=== PATIENT | female | born 1955 | race African-American/Black ===

== ENCOUNTER 2016-11-18 18:16 | Emergency (ER) | payer BC, OTHER ==
[2016-11-18 18:28] VITALS: TEMP 97.5; BMI 24.3
[2016-11-18 19:59] VITALS: BP 150/91; PULSE 71
[2016-11-18 20:32] LABS: BASOPHIL 0.6 % (0-2.0); EOSINOPHIL 0.7 % (0-4.5); MCH 28.6 pg (25.7-33.7); MCHC 34.3 g/dl (32.0-36.0); MEAN CELL VOLUME 83.4 fl (80-96); NEUTROPHILS 48.1 % (42.8-82.8); PLATELET COUNT 280 K/MM3 (134-434); RDW 14.7 % (11.6-15.6); WHITE BLOOD COUNT 3.9 K/mm3 (4.0-10.0)
[2016-11-18 21:09] LABS: ALBUMIN 3.9 g/dl (3.4-5.0); ANION GAP 10 (8-16); CALCIUM 8.9 mg/dL (8.5-10.1); CO2 29 mmol/L (21-32); GLUCOSE,RANDOM 84 mg/dL (74-106)
[2016-11-18 21:14] LABS: ALK PHOS 67 U/L (45-117); BILIRUBIN,TOTAL 0.3 mg/dL (0.2-1.0); CREATININE 0.8 mg/dL (0.55-1.02); SGOT/AST 29 U/L (15-37); SGPT/ALT 32 U/L (12-78); TOT PROT 7.4 g/dl (6.4-8.2)
[2016-11-18] MEDS ORDERED: POTASSIUM CHLORIDE TABS 20 MEQ TABLET.ER (FP) PO ONE ×2 (21:35→21:48)
--- NOTE | 2016-11-18 21:42 | PDOC ---
History of Present Illness - General Chief Complaint: Weakness Stated Complaint: WEAKNESS Time Seen by Provider: 11/18/16 19:13 - History of Present Illness Initial Comments: 11/18/16 21:36 CHIEF COMPLAINT: weakness HISTORY OF PRESENT ILLNESS: 61 yo F with hx of HTN presents to ED with intermittent weakness x 2 weeks. Patient states today she felt a "sharp pain" to the top of her stomach that immediately went away. She states she has noticed that sometimes when she eats in the morning she is dizzy, but the dizziness resolves in the afternoon and evenings. She was seen at [facility] 2 weeks ago for the same symptoms. She also reports that she feels sometimes that she "is not balancing when walking." She denies any shortness of breath, chest pain, LOC, nausea, vomiting, diarrhea, or change in urination. 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 No recent travel or sick contacts. 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 Denies tobacco, alcohol, illicit drug use. SURGICAL HISTORY: Denies ALLERGIES: No known drug allergies REVIEW OF SYSTEMS General/Constitutional: Denies fever or chills. Denies weakness, weight change. HEENT: Denies change in vision. Denies ear pain or discharge. Denies sore throat. Cardiovascular: Denies chest pain or shortness of breath. Respiratory: Denies cough, wheezing, or hemoptysis. Gastrointestinal: Denies nausea, vomiting, diarrhea or constipation. Denies rectal bleeding. Genitourinary: Denies dysuria, frequency, or change in urination. Musculoskeletal: Denies joint or muscle swelling or pain. Denies neck or back pain. Skin and breasts: Denies rash or easy bruising. Neurologic: Intermittent dizziness, none at this time. Denies headache, loss of consciousness, or loss of sensation. PHYSICAL EXAM General Appearance: Well-appearing, appropriately dressed. No apparent distress , no intoxication. HEENT: EOMI, PERRLA, normal ENT inspection, normal voice, TMs normal, pharynx normal. No conjunctival pallor. No photophobia, scleral icterus. Neck: Supple. Trachea midline. No tenderness, rigidity, carotid bruit, stridor , lymphadenopathy, or thyromegaly. Respiratory/Chest: Lungs CTAB. No shortness of breath, chest tenderness, respiratory distress, accessory muscle use. No crackles, rales, rhonchi, stridor , wheezing, dullness Cardiovascular: RRR. S1, S2. No JVD, murmur, bradycardia, tachycardia. Vascular Pulses: Dorsalis-Pedis (R): 2+, Dorsalis-Pedis (L): 2+ Gastrointestinal/Abdominal: Normal bowel sounds. Abdomen soft, non-distended. No tenderness or rebound tenderness. No organomegaly, pulsatile mass, guarding , hernia, hepatomegaly, splenomegaly. Lymphatic: No adenopathy, tenderness. Musculoskeletal/Extremities: Normal inspection. FROM of all extremities, normal capillary refill. Pelvis Stable. No CVA tenderness. No tenderness to extremities, pedal edema, swelling, erythema or deformity. Integumentary: Appropriate color, dry, warm. No cyanosis, erythema, jaundice or rash Neurologic: chinese medicine practitioner II-XII intact. Fully oriented, alert. Appropriate mood/affect. Motor strength 5/5. No appreciable EOM palsy, facial droop or sensory deficit. Past History - Past Medical History Allergies/Adverse Reactions: Allergies Allergy/AdvReac Type Severity Reaction Status Date / Time No Known Allergies Allergy Verified 11/18/16 18:28 Home Medications: Ambulatory Orders Unobtainable [Unobtainable] 11/18/16 HTN: Yes - Psycho/Social/Smoking Cessation Hx Suicidal Ideation: No Smoking History: Never smoked *Physical Exam - Vital Signs Last Vital Signs Temp Pulse Resp BP Pulse Ox 97.5 F L 71 19 150/91 100 11/18/16 18:26 11/18/16 19:58 11/18/16 19:58 11/18/16 19:58 11/18/16 19:58 ED Treatment Course - LABORATORY CBC & Chemistry Diagram: 11/18/16 19:10 11/18/16 19:10 - ADDITIONAL ORDERS Additional order review: Laboratory Results 11/18/16 19:10 Sodium 143 Potassium 3.3 L Chloride 104 Carbon Dioxide 29 Anion Gap 10 BUN 17 Creatinine 0.8 Creat Clearance w eGFR > 60 Random Glucose 84 Calcium 8.9 Magnesium 2.0 Total Bilirubin 0.3 AST 29 ALT 32 Alkaline Phosphatase 67 Total Protein 7.4 Albumin 3.9 11/18/16 19:10 RBC 4.33 MCV 83.4 MCHC 34.3 RDW 14.7 MPV 8.0 Neutrophils % 48.1 Lymphocytes % 43.7 H Monocytes % 6.9 Eosinophils % 0.7 Basophils % 0.6 - RADIOLOGY Radiology Studies Ordered: Category Date Time Status HEAD CT WITHOUT CONTRAST [CT] Stat CT Scan 11/18/16 20:16 Completed CHEST PA & LAT [RAD] Stat Radiology 11/18/16 20:09 Completed Medical Decision Making - Medical Decision Making 11/18/16 21:42 61 yo F with hx of HTN presents to ED with intermittent weakness and dizziness x 2 weeks. -CBC, CMP -Head CT labs: K+ 3.3, otherwise unremarkable head CT negative -20 mEq KCl Patient reassessed; states she still feels "fine." Will discharge to home with close f/u with PMD Steven Owusu. Advised patient to f/u with Dr. Owusu this week and of signs and symptoms for return to ER. Patient verbalized understanding and agrees to plan; states she will make appt with MD tomorrow. *DC/Admit/Observation/Transfer Diagnosis at time of Disposition: Weakness - Discharge Dispostion Disposition: HOME Condition at time of disposition: Stable Admit: No - Referrals Referrals: Steven Owusu MD [Primary Care Provider] - Constantin Castro MD [Staff Physician] - - Patient Instructions Additional Instructions: As discussed, please follow up with Dr. Owusu tomorrow. If you experience any vomiting, diarrhea, rectal bleeding, change in urination, fever, headache, chest pain, shortness of breath, weakness to one side, slurred speech, change in vision, or any new or worsening symptoms, please return to the ER. - Post Discharge Activity Work/School Note: Back to Work
--- NOTE | 2016-11-18 21:48 | PDOC ---
[id number]/91 100 11/18/16 18:26 11/18/16 19:58 11/18/16 19:58 11/18/16 19:58 11/18/16 19:58 ED Treatment Course - LABORATORY CBC & Chemistry Diagram: 11/18/16 19:10 11/18/16 19:10 - ADDITIONAL ORDERS Additional order review: Laboratory Results 11/18/16 19:10 Sodium 143 Potassium 3.3 L Chloride 104 Carbon Dioxide 29 Anion Gap 10 BUN 17 Creatinine 0.8 Creat Clearance w eGFR > 60 Random Glucose 84 Calcium 8.9 Magnesium 2.0 Total Bilirubin 0.3 AST 29 ALT 32 Alkaline Phosphatase 67 Total Protein 7.4 Albumin 3.9 11/18/16 19:10 RBC 4.33 MCV 83.4 MCHC 34.3 RDW 14.7 MPV 8.0 Neutrophils % 48.1 Lymphocytes % 43.7 H Monocytes % 6.9 Eosinophils % 0.7 Basophils % 0.6 Medical Decision Making - Medical Decision Making 11/18/16 21:48 agree with care from [facility] *DC/Admit/Observation/Transfer Diagnosis at time of Disposition: Weakness - Discharge Dispostion Disposition: HOME Condition at time of disposition: Stable - Referrals Referrals: Constantin Castro MD [Staff Physician] - Steven Owusu MD [Primary Care Provider] - - Patient Instructions Additional Instructions: As discussed, please follow up with Dr. Owusu tomorrow. If you experience any vomiting, diarrhea, rectal bleeding, change in urination, fever, headache, chest pain, shortness of breath, weakness to one side, slurred speech, change in vision, or any new or worsening symptoms, please return to the ER. - Post Discharge Activity Work/School Note: Back to Work
--- NOTE | 2016-11-19 16:38 | EKG ---
Test Reason : Blood Pressure : / mmHG Vent. Rate : 069 BPM Atrial Rate : 069 BPM P-R Int : 152 ms QRS Dur : 058 ms QT Int : 400 ms P-R-T Axes : 050 019 034 degrees QTc Int : 428 ms NORMAL SINUS RHYTHM NORMAL ECG WHEN COMPARED WITH ECG OF 13-NOV-2009 23:31, NO SIGNIFICANT CHANGE WAS FOUND Confirmed by MD RAVIN, ISAI ([id number]) on 11/19/2016 4:37:54 PM Referred By: Confirmed By:ISAI ALICIA MD
== END 2016-11-18 22:20 | disposition home or self-care (01) ==
LOC: JER 18:16
DX: R53.1 Weakness (principal); I10 Essential (primary) hypertension; E87.6 Hypokalemia
CPT/HCPCS: 36415; 70450-TC; 71020-TC; 80053; 83735; 85025; 93005; 93010; 99283-25

== ENCOUNTER 2017-05-09 15:51 | Emergency (ER) | payer OTHER ==
[2017-05-09 15:57] VITALS: BP 135/70; PULSE 88; TEMP 97.8; BMI 24.3
--- NOTE | 2017-05-09 16:12 | PDOC ---
History of Present Illness - General History Source: Patient Exam Limitations: No Limitations - History of Present Illness Initial Comments: The patient is a 62 yo F with a past medical history significant for HTN (on Glymersartan 40/25 and hydrochlorothiazide) who presents with sharp, intermittent chest pain and dizziness for 2 days. The patient states the chest pain is centrally located and worsened when she bends her head downward. 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 The patient reports she was seen here a few months ago with similar symptoms and diagnosed with GERD. She states she followed up with her PCP but did not continue to take her GERD medications. The patient denies passing gas. The patient denies sick contacts. The patient denies palpitations. The patient denies nausea, vomiting, diarrhea and abdominal pain. PCP: Dr. Steven Owusu <Estefanía Rodriguez - Last Filed: 05/09/17 19:10> <Yariel Fraire - Last Filed: 05/09/17 20:14> - General Chief Complaint: Chest Pain Stated Complaint: STERNUM PAIN, DIZZINESS Time Seen by Provider: 05/09/17 16:12 Past History <Estefanía Rodriguez - Last Filed: 05/09/17 19:10> - Past Medical History HTN: Yes - Psycho/Social/Smoking Cessation Hx Suicidal Ideation: No Smoking History: Never smoked Hx Alcohol Use: No Drug/Substance Use Hx: No <Yariel Fraire - Last Filed: 05/09/17 20:14> - Past Medical History Allergies/Adverse Reactions: Allergies Allergy/AdvReac Type Severity Reaction Status Date / Time No Known Allergies Allergy Verified 05/09/17 15:58 Home Medications: Ambulatory Orders Aspirin [Ecotrin] 81 mg PO DAILY 05/09/17 Multivitamin/Iron/Folic Acid [Centrum Adults Tablet] 1 each PO DAILY 05/09/17 Olmesartan/Hydrochlorothiazide [Olmesartan-Hctz 40-25 mg Tab] 1 each PO DAILY Mcgrath-3 Fatty Acids/Fish Oil [Fish Oil 1,000 mg Softgel] 1 each PO DAILY Pantoprazole Sodium [Protonix] 40 mg PO BID #60 tablet. 05/09/17 Review of Systems - Review of Systems Able to Perform ROS?: Yes Comments:: GENERAL/CONSTITUTIONAL: No fever or chills. No weakness. HEAD, EYES, EARS, NOSE AND THROAT: No change in vision. No ear pain or discharge. No sore throat. CARDIOVASCULAR: +chest pain shortness of breath. RESPIRATORY: No cough, wheezing, or hemoptysis. GASTROINTESTINAL: No nausea, vomiting, diarrhea or constipation. GENITOURINARY: No dysuria, frequency, or change in urination. MUSCULOSKELETAL: No joint or muscle swelling or pain. No neck or back pain. SKIN: No rash NEUROLOGIC: +dizziness No headache, vertigo, loss of consciousness, or change in strength/sensation. ALLERGIC/IMMUNOLOGIC: No hives or skin allergy. <Estefanía Rodriguez - Last Filed: 05/09/17 19:10> *Physical Exam - Vital Signs Last Vital Signs Temp Pulse Resp BP Pulse Ox 97.8 F 88 18 135/70 100 05/09/17 15:51 05/09/17 15:51 05/09/17 15:51 05/09/17 15:51 05/09/17 15:51 - Physical Exam Comments: GENERAL: Awake, alert, and fully oriented, in no acute distress HEAD: No signs of trauma EYES: PERRLA, EOMI, sclera anicteric, conjunctiva clear ENT: Auricles normal inspection, hearing grossly normal, nares patent, oropharynx clear without exudates. Moist mucosa NECK: Normal ROM, supple, no lymphadenopathy, JVD, or masses LUNGS: Breath sounds equal, clear to auscultation bilaterally. No wheezes, and no crackles HEART: Regular rate and rhythm, normal S1 and S2, no rubs or gallops. 4/6 systolic ejection murmur heard best in the R intercostal space. ABDOMEN: Soft, nontender, normoactive bowel sounds. No guarding, no rebound. No masses EXTREMITIES: Normal range of motion, no edema. No clubbing or cyanosis. No cords, erythema, or tenderness NEUROLOGICAL: Cranial nerves II through XII grossly intact. Normal speech, gait not assessed SKIN: Warm, Dry, normal turgor, no rashes or lesions noted. <Estefanía Rodriguez - Last Filed: 05/09/17 19:10> - Vital Signs Last Vital Signs Temp Pulse Resp BP Pulse Ox 97.8 F 88 18 135/70 100 05/09/17 15:51 05/09/17 15:51 05/09/17 15:51 05/09/17 15:51 05/09/17 15:51 <Yariel Fraire - Last Filed: 05/09/17 20:14> Heart Score/ECG Review #1 NSR @ 82 bpm. <Estefanía Rodriguez - Last Filed: 05/09/17 19:10> ED Treatment Course - LABORATORY CBC & Chemistry Diagram: 05/09/17 16:36 05/09/17 16:36 <Estefanía Rodriguez - Last Filed: 05/09/17 19:10> - LABORATORY CBC & Chemistry Diagram: 05/09/17 16:36 05/09/17 16:36 <Yariel Fraire - Last Filed: 05/09/17 20:14> Medical Decision Making - Medical Decision Making Will place on satellite project site monitor. Will obtain labs. Will reasses. <Estefanía Rodriguez - Last Filed: 05/09/17 19:10> *DC/Admit/Observation/Transfer - Attestations Scribe Attestion: Documentation prepared by Estefanía Rodriguez, acting as medical instrument technician for Yariel Fraire MD/DO. <Estefanía Rodriguez - Last Filed: 05/09/17 19:10> - Discharge Dispostion Admit: No - Attestations Physician Attestion: 05/09/17 16:12 I, Dr. Yariel Fraire, attest that this document has been prepared under my direction and personally reviewed by me in its entirety. I further attest, that it accurately reflects all work, treatment, procedures and medical decision -making performed by me. <Yariel Fraire - Last Filed: 05/09/17 20:14> Diagnosis at time of Disposition: Chest pain, atypical GERD (gastroesophageal reflux disease) Qualifiers: Esophagitis presence: without esophagitis Qualified Code(s): K21.9 - Gastro- esophageal reflux disease without esophagitis - Discharge Dispostion Disposition: HOME Condition at time of disposition: Good - Referrals Referrals: Steven Owusu MD [Primary Care Provider] - - Patient Instructions Printed Discharge Instructions: DI for Atypical Chest Pain, DI for Chest Pain, DI for Gastroesophageal Reflux Disease (GERD), GERD Diet Additional Instructions: Please start the protonix tomorrow, take your regular medicines, see Dr. Owusu (Steven) before returning to work. Return to us if any problems. Best- Dr. Yariel Fraire - Post Discharge Activity Work/School Note: Back to Work
[2017-05-09 18:01] LABS: BASOPHIL 0.4 % (0-2.0); EOSINOPHIL 0.2 % (0-4.5); MCHC 34.6 g/dl (32.0-36.0); MEAN CELL VOLUME 83.9 fl (80-96); MEAN PLT VOLUME 7.5 fl (7.5-11.1); NEUTROPHILS 58.7 % (42.8-82.8); PLATELET COUNT 288 K/MM3 (134-434); RDW 14.6 % (11.6-15.6); WHITE BLOOD COUNT 4.1 K/mm3 (4.0-10.0)
[2017-05-09 18:14] LABS: INR 1.1 (0.82-1.09); PROTHROMBIN TIME (PATIENT) 12.1 SEC (9.98-11.88)
[2017-05-09 18:24] LABS: ALBUMIN 3.8 g/dl (3.4-5.0); ALK PHOS 63 U/L (45-117); ANION GAP 7 (8-16); BILIRUBIN,TOTAL 0.3 mg/dL (0.2-1.0); CALCIUM 9.1 mg/dL (8.5-10.1); CO2 31 mmol/L (21-32); CREATININE 0.8 mg/dL (0.55-1.02); GLUCOSE,RANDOM 106 mg/dL (74-106); SGOT/AST 32 U/L (15-37); SGPT/ALT 45 U/L (12-78); TOT PROT 7.3 g/dl (6.4-8.2)
[2017-05-09 18:26] LABS: CPK 465 IU/L (26-192); TROPONIN I < 0.02 ng/ml (0.00-0.05)
[2017-05-09 18:39] LABS: URINE APPEARANCE CLEAR; URINE BILIRUBIN NEGATIVE (NEGATIVE); URINE BLOOD NEGATIVE (NEGATIVE); URINE COLOR LTYELLOW; URINE GLUCOSE (UA) NEGATIVE (NEGATIVE); URINE KETONE NEGATIVE (NEGATIVE); URINE LEUK ESTERASE NEGATIVE (NEGATIVE); URINE NITRITE NEGATIVE (NEGATIVE); URINE PROTEIN NEGATIVE (NEGATIVE); URINE UROBILINOGEN NEGATIVE mg/dL (0.2-1.0)
--- NOTE | 2017-05-11 16:47 | EKG ---
Test Reason : Blood Pressure : / mmHG Vent. Rate : 082 BPM Atrial Rate : 082 BPM P-R Int : 198 ms QRS Dur : 060 ms QT Int : 356 ms P-R-T Axes : 077 065 061 degrees QTc Int : 415 ms NORMAL SINUS RHYTHM NORMAL ECG WHEN COMPARED WITH ECG OF 18-NOV-2016 19:22, NO SIGNIFICANT CHANGE WAS FOUND Confirmed by ESDRAS DE LEON MD ([id number]) on 05/11/2017 4:46:43 PM Referred By: Confirmed By:ESDRAS DE LEON MD
== END 2017-05-09 20:25 | disposition home or self-care (01) ==
LOC: JER 15:51
DX: K21.9 Gastro-esophageal reflux disease without esophagitis (principal); I10 Essential (primary) hypertension
CPT/HCPCS: 36415; 71010-TC; 80053; 81003; 82553; 84484; 85025; 85610; 93005; 93010; 99285-25

== ENCOUNTER 2017-06-01 07:40 | Day surgery (SDC) | payer OTHER ==
[2017-05-31 12:22] VITALS: BMI 23.5
[~2017-06-01 07:40] MED LIST: ACETAMINOPHEN 325 MG TABLET (FP) PO PRN; CHONDROITIN SU A/HYALUR SOD 1 KIT IO ONE; FLURBIPROFEN 0.03% OPHTH SOLN 2.5 ML BOTTLE OP SCH; LIDOCAINE HCL 1% PRESERVATIVE FREE - 30ML VIAL IO ONE; LIDOCAINE HCL 2% JELLY (5 ML/TUBE) TP ONE
[2017-06-01 08:00] VITALS: TEMP 97.6
[2017-06-01] MEDS ORDERED: LIDOCAINE HCL 2% JELLY (5 ML/TUBE) TP ONE ×2 (08:00→08:40)
[2017-06-01] MEDS: CIPROFLOXACIN HCL 0.3% OPHTH 2.5ML BOTTLE OP SCH ×3 (08:00→08:42)
[2017-06-01] MEDS: CYCLOPENTOLATE HCL 1% OPHTH SOLN 2 ML BOTTLE OP SCH ×3 (08:05→08:42)
[2017-06-01] MEDS: TROPICAMIDE 1% OPHTH SOLN 15 ML BOTTLE OP SCH ×3 (08:05→08:43)
[2017-06-01] MEDS: PHENYLEPHRINE 2.5% OPHTH SOLN 15 ML BOTTLE OP SCH ×3 (08:05→08:43)
[2017-06-01] MEDS ORDERED: CIPROFLOXACIN 0.3% EYE DROPS 5 ML BOTTLE ONE (08:11)
[2017-06-01] MEDS ORDERED: CYCLOPENTOLATE HCL 1% OPHTH SOLN 2 ML BOTTLE ONE (08:11)
[2017-06-01] MEDS ORDERED: PHENYLEPHRINE 2.5% OPHTH SOLN 15 ML BOTTLE ONE (08:11)
[2017-06-01] MEDS ORDERED: TROPICAMIDE 1% OPHTH SOLN 15 ML BOTTLE ONE (08:11)
[2017-06-01] MEDS ORDERED: LIDOCAINE HCL 1% PRESERVATIVE FREE - 30ML VIAL IO ONE ×2 (08:18→09:07)
[2017-06-01] MEDS ORDERED: CHONDROITIN SU A/HYALUR SOD 1 KIT IO ONE ×2 (08:19→09:08)
[2017-06-01] MEDS ORDERED: MIDAZOLAM HCL 2 MG/2 ML SINGLE DOSE VIAL ONE (08:54)
--- NOTE | 2017-06-01 09:44 | SPEC ---
DATE OF OPERATION: 06/01/2017 PREOPERATIVE DIAGNOSIS: Cataract, left eye. POSTOPERATIVE DIAGNOSIS: Cataract, left eye. PROCEDURE: Phacoemulsification of left cataract with posterior chamber intraocular lens implantation. Lens used [id number], 21.0 diopter power, serial no. [id number]. SURGEON: Delia Jones M.D. ANESTHESIA: Topical MAC. COMPLICATIONS: None. DESCRIPTION OF PROCEDURE: The patient was brought to the operating room and correctly identified along with the operative site and the correct intraocular lens talavera. The patient was then prepped and draped in the usual sterile fashion including 5% Betadine solution in the conjunctival sac and an eyelid drape. An eyelid speculum was then placed in the eye. A paracentesis port was created and approximately 0.5 mL of preservative free Lidocaine was then injected into the eye. Viscoelastic was then injected to inflate the anterior chamber. A temporal clear corneal wound was created. A continuous circular capsulorrhexis was performed. The nucleus was then hydro-dissected with BSS and removed with phacoemulsification. The remaining cortical material was irrigated and aspirated. Viscoelastic was injected to inflate the capsular bag and the intraocular lens was then implanted into the capsular bag. The remaining Viscoelastic was irrigated and aspirated from the eye. The IOL was noted to be well centered and completely covered by the anterior capsulorrhexis. Topical Vancomycin was placed and the eye patched and shielded. The patient was then discharged from the operating room in stable condition. All wounds were tested and found to be watertight. No suture was placed. The eye was then shielded. The patient was then discharged from the operating room in stable condition. DELIA JONES M.D. /[id number]
[2017-06-01] MEDS ORDERED: LIDOCAINE HCL 2% JELLY (5 ML/TUBE) ONE (10:23)
[2017-06-01] MEDS ORDERED: EPINEPHrine/PF 1 MG/1 ML (1:1,000) AMPULE ONE (10:23)
[2017-06-01] MEDS ORDERED: LIDOCAINE HCL/PF 1% SDV 5ML VIAL ONE (10:23)
[2017-06-01 10:52] VITALS: BP 116/71; PULSE 57
== END 2017-06-01 10:30 | disposition home or self-care (01) ==
LOC: JASU-SURG 07:40
PROVIDERS: ATTEND Ophthalmology
PROC: 08RK3JZ Replacement of Left Lens with Synthetic Substitute, Percutaneous Approach (ICD-10-PCS; principal; 2017-06-01 09:00)
DX: H26.9 Unspecified cataract (principal)

== ENCOUNTER 2017-06-15 07:33 | Day surgery (SDC) | payer OTHER ==
[2017-06-13 12:48] VITALS: BMI 23.5
[~2017-06-15 07:33] MED LIST changes: -CHONDROITIN SU A/HYALUR SOD 1 KIT IO ONE; -LIDOCAINE HCL 1% PRESERVATIVE FREE - 30ML VIAL IO ONE; -LIDOCAINE HCL 2% JELLY (5 ML/TUBE) TP ONE
[2017-06-15] MEDS ORDERED: EPINEPHrine/PF 1 MG/1 ML (1:1,000) AMPULE ONE (07:41)
[2017-06-15] MEDS ORDERED: LIDOCAINE HCL 2% JELLY (5 ML/TUBE) ONE (07:41)
[2017-06-15] MEDS ORDERED: LIDOCAINE HCL/PF 1% SDV 5ML VIAL ONE (07:42)
[2017-06-15] MEDS ORDERED: CYCLOPENTOLATE HCL 1% OPHTH SOLN 2 ML BOTTLE ONE (07:43)
[2017-06-15] MEDS ORDERED: TROPICAMIDE 1% OPHTH SOLN 15 ML BOTTLE ONE (07:43)
[2017-06-15] MEDS ORDERED: PHENYLEPHRINE 2.5% OPHTH SOLN 15 ML BOTTLE ONE (07:43)
[2017-06-15] MEDS ORDERED: CIPROFLOXACIN 0.3% EYE DROPS 5 ML BOTTLE ONE (07:43)
[2017-06-15] MEDS: TROPICAMIDE 1% OPHTH SOLN 15 ML BOTTLE OP SCH ×3 (07:50→08:00)
[2017-06-15] MEDS: CYCLOPENTOLATE HCL 1% OPHTH SOLN 2 ML BOTTLE OP SCH ×3 (07:50→08:00)
[2017-06-15] MEDS: CIPROFLOXACIN HCL 0.3% OPHTH 2.5ML BOTTLE OP SCH ×3 (07:50→08:00)
[2017-06-15] MEDS: PHENYLEPHRINE 2.5% OPHTH SOLN 15 ML BOTTLE OP SCH ×3 (07:50→08:00)
[2017-06-15 07:51] VITALS: TEMP 98.2
[2017-06-15] MEDS ORDERED: LIDOCAINE HCL 2% JELLY (5 ML/TUBE) TP ONE (08:35)
[2017-06-15] MEDS ORDERED: MIDAZOLAM HCL 2 MG/2 ML SINGLE DOSE VIAL ONE (08:36)
[2017-06-15] MEDS ORDERED: POVIDONE-IODINE 5% OPHTHALMIC PREP 30 ML SOLUTION OD ONE (09:04)
[2017-06-15] MEDS ORDERED: LIDOCAINE HCL 1% PRESERVATIVE FREE - 30ML VIAL IO ONE (09:12)
[2017-06-15] MEDS ORDERED: BSS (NA/CA/MG/K) BALANCED SALT SOLUTION OPHTH SOLN 15 ML BOTTLE OD ONE (09:12)
[2017-06-15] MEDS ORDERED: CHONDROITIN SU A/HYALUR SOD 1 KIT IO ONE (09:12)
[2017-06-15] MEDS ORDERED: EPINEPHrine/PF 1 MG/1 ML (1:1,000) AMPULE IO ONE (09:14)
[2017-06-15 10:30] VITALS: BP 119/81; PULSE 64
--- NOTE | 2017-06-15 23:43 | SPEC ---
DATE OF SURGERY: OPERATION: Phacoemulsification with posterior chamber intraocular lens implantation, right eye. Lens used [id number], 21.5 Diopter power, Serial No. [id number]. PREOPERATIVE DIAGNOSIS: Cataract, right eye. POSTOPERATIVE DIAGNOSIS: Cataract, right eye. SURGEON: Roby Stewart M.D. ANESTHESIA: Topical MAC. COMPLICATIONS: None. PROCEDURE: The patient was brought to the operating room and correctly identified along with the operative site and the correct intraocular lens talavera. The patient was then prepped and draped in the usual sterile fashion including 5% Betadine solution in the conjunctival sac and an eyelid drape. An eyelid speculum was then placed in the eye. A paracentesis port was created and approximately 0.5 mL of preservative free Lidocaine was then injected into the eye. Viscoelastic was then injected to inflate the anterior chamber. A temporal clear corneal wound was created. A continuous circular capsulorrhexis was performed. The nucleus was then hydrodissected with BSS and removed with phacoemulsification. The remaining cortical material was irrigated and aspirated. Viscoelastic was injected to inflate the capsular bag and the intraocular lens was then implanted into the capsular bag. The remaining Viscoelastic was irrigated and aspirated from the eye. The IOL was noted to be well centered and completely covered by the anterior capsulorrhexis. Topical vancomycin was placed and the eye patched and shielded. All wounds were tested and found to be watertight. No suture was placed. The eye was then shielded. The patient was then discharged from the operating room in stable condition. Hilario CASTRO/[id number]
== END 2017-06-15 10:35 | disposition home or self-care (01) ==
LOC: JASU-SURG 07:33
PROVIDERS: ATTEND Ophthalmology
PROC: 08RJ3JZ Replacement of Right Lens with Synthetic Substitute, Percutaneous Approach (ICD-10-PCS; principal; 2017-06-15 09:00)
DX: H26.9 Unspecified cataract (principal)

== ENCOUNTER 2018-03-03 10:25 | Emergency (ER) | payer OTHER ==
[2018-03-03 10:31] VITALS: BP 144/86; PULSE 97; TEMP 98; BMI 24.4
[2018-03-03 11:46] LABS: BASO % 0.5 % (0-2.0); EOS % 0.7 % (0-4.5); HEMATOCRIT 36.4 % (32.4-45.2); HEMOGLOBIN 12.6 GM/dL (10.7-15.3); LYMPH % 43.3 % (8-40); MCH 29.1 pg (25.7-33.7); MCHC 34.7 g/dl (32.0-36.0); MEAN CELL VOLUME 83.7 fl (80-96); MEAN PLT VOLUME 7.8 fl (7.5-11.1); MONO % 7.1 % (3.8-10.2); NEUT % 48.4 % (42.8-82.8); PLATELET COUNT 283 K/MM3 (134-434); RBC 4.35 M/mm3 (3.60-5.2); RDW 14.6 % (11.6-15.6)
--- NOTE | 2018-03-03 11:53 | PDOC ---
History of Present Illness - General Chief Complaint: Chest Pain Stated Complaint: HIGHTOWER CHEST PAIN,DIZZINESS Time Seen by Provider: 03/03/18 10:40 History Source: Patient - History of Present Illness Presenting Symptoms: Chest Pain Timing/Duration: reports: resolved prior to arrival Past History - Past Medical History Allergies/Adverse Reactions: Allergies Allergy/AdvReac Type Severity Reaction Status Date / Time No Known Allergies Allergy Verified 03/03/18 10:29 Home Medications: Ambulatory Orders Multivitamin/Iron/Folic Acid [Centrum Adults Tablet] 1 each PO DAILY 05/09/17 Olmesartan/Hydrochlorothiazide [Olmesartan-Hctz 40-25 mg Tab] 1 each PO DAILY Anemia: No Asthma: No Cancer: No Cardiac Disorders: No CVA: No COPD: No CHF: No Dementia: No Diabetes: No GI Disorders: No Disorders: No HTN: Yes Hypercholesterolemia: No Liver Disease: No Seizures: No Thyroid Disease: No - Immunization History Immunization Up to Date: Yes - Suicide/Smoking/Psychosocial Hx Smoking History: Never smoked Hx Alcohol Use: No Drug/Substance Use Hx: No Substance Use Type: None Hx Substance Use Treatment: No Cardiac Specific PMH - Complaint Specific PMHX Pacemaker: No Review of Systems - Review of Systems Constitutional: No: Chills, Fever Respiratory: No: Cough, Shortness of Breath Cardiac (ROS): Yes: Chest Pain. No: Lightheadedness, Palpitations, Syncope ABD/GI: No: Nausea, Vomiting *Physical Exam - Vital Signs Last Vital Signs Temp Pulse Resp BP Pulse Ox 98.0 F 97 H 18 144/86 97 03/03/18 10:29 03/03/18 10:29 03/03/18 10:29 03/03/18 10:29 03/03/18 10:29 - Physical Exam General Appearance: Yes: Appropriately Dressed. No: Apparent Distress HEENT: positive: Normal Voice Neck: positive: Supple Respiratory/Chest: positive: Lungs Clear, Normal Breath Sounds. negative: Respiratory Distress Cardiovascular: positive: Regular Rate, S1, S2 Gastrointestinal/Abdominal: positive: Soft. negative: Tender, Pulsatile Mass Integumentary: positive: Dry, Warm Neurologic: positive: Fully Oriented, Alert, Normal Mood/Affect ED Treatment Course - LABORATORY CBC & Chemistry Diagram: 03/03/18 11:30 03/03/18 11:30 - ADDITIONAL ORDERS Additional order review: Laboratory Results 03/03/18 11:30 Sodium 142 Potassium 3.7 Chloride 106 Carbon Dioxide 31 Anion Gap 5 L BUN 16 Creatinine 0.7 Creat Clearance w eGFR > 60 Random Glucose 91 Calcium 8.9 Total Bilirubin 0.4 D AST 33 ALT 46 Alkaline Phosphatase 72 Creatine Kinase 597 H Creatine Kinase Index 0.9 CK-MB (CK-2) 5.58 H Troponin I < 0.02 B-Natriuretic Peptide 45.80 Total Protein 7.4 Albumin 3.6 03/03/18 11:30 RBC 4.35 MCV 83.7 MCHC 34.7 RDW 14.6 MPV 7.8 Neutrophils % 48.4 Lymphocytes % 43.3 H D Monocytes % 7.1 Eosinophils % 0.7 D Basophils % 0.5 - RADIOLOGY Radiology Studies Ordered: Category Date Time Status CHEST X-RAY PORTABLE* [RAD] Stat Radiology 03/03/18 11:31 Completed Medical Decision Making - Medical Decision Making 03/03/18 11:53 63-year-old female, history of hypertension, GERD, here with chest pain that has since resolved. 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 Denies shortness of breath, diaphoresis, nausea, vomiting. Has been asymmetric. No history of similar pain. States she had a negative stress test last year. No obvious risk factors for DVT/PE See exam CP Not great story for ACS, unlikely dissection or PE Pt stable and well berenice w/ unremarkable exam Ekg unremarkable as d/w ED attg -will r/o serial trop as d/w ED attg 03/03/18 13:49 Pt signed out to Dr Barajas pending 2nd trop *DC/Admit/Observation/Transfer Diagnosis at time of Disposition: Chest pain, atypical - Referrals Referrals: Steven Owusu MD [Primary Care Provider] - - Patient Instructions Printed Discharge Instructions: DI for Atypical Chest Pain Additional Instructions: Your EKG and labs were normal. Please follow-up with your primary care doctor as needed - Post Discharge Activity
[2018-03-03 12:07] LABS: ALBUMIN 3.6 g/dl (3.4-5.0); ANION GAP 5 (8-16); BLOOD UREA NITROGEN 16 mg/dL (7-18); CALCIUM 8.9 mg/dL (8.5-10.1); CHLORIDE 106 mmol/L (98-107); CO2 31 mmol/L (21-32); CREATININE 0.7 mg/dL (0.55-1.02); GLUCOSE,RANDOM 91 mg/dL (74-106); POTASSIUM 3.7 mmol/L (3.5-5.1); SGOT/AST 33 U/L (15-37); SGPT/ALT 46 U/L (12-78); SODIUM 142 mmol/L (136-145)
[2018-03-03 12:09] LABS: BILIRUBIN,TOTAL 0.4 mg/dL (0.2-1.0); TOT PROT 7.4 g/dl (6.4-8.2)
[2018-03-03 12:12] LABS: ALK PHOS 72 U/L (45-117)
--- NOTE | 2018-03-03 13:45 | PDOC ---
*Physical Exam - Vital Signs Last Vital Signs Temp Pulse Resp BP Pulse Ox 98.0 F 97 H 18 144/86 97 03/03/18 10:29 03/03/18 10:29 03/03/18 10:29 03/03/18 10:29 03/03/18 10:29 ED Treatment Course - LABORATORY CBC & Chemistry Diagram: 03/03/18 11:30 03/03/18 11:30 - ADDITIONAL ORDERS Additional order review: Laboratory Results 03/03/18 11:30 Sodium 142 Potassium 3.7 Chloride 106 Carbon Dioxide 31 Anion Gap 5 L BUN 16 Creatinine 0.7 Creat Clearance w eGFR > 60 Random Glucose 91 Calcium 8.9 Total Bilirubin 0.4 D AST 33 ALT 46 Alkaline Phosphatase 72 Creatine Kinase 597 H Creatine Kinase Index 0.9 CK-MB (CK-2) 5.58 H Troponin I < 0.02 B-Natriuretic Peptide 45.80 Total Protein 7.4 Albumin 3.6 03/03/18 11:30 RBC 4.35 MCV 83.7 MCHC 34.7 RDW 14.6 MPV 7.8 Neutrophils % 48.4 Lymphocytes % 43.3 H D Monocytes % 7.1 Eosinophils % 0.7 D Basophils % 0.5 Medical Decision Making - Medical Decision Making 03/03/18 13:44 Signout taken from DEANGELO Poe. 03/03/18 15:34 Ms. Lopes is resting comfortably - reports her chest pain today was alleviated by belching after. EKG non-concerning. Cardiac labs and repeat troponin negative as below. Discharging patient to home w/ instructions to follow-up with PCP for further evaluation. *DC/Admit/Observation/Transfer Diagnosis at time of Disposition: Chest pain, atypical - Discharge Dispostion Disposition: HOME - Referrals Referrals: Steven Owusu MD [Primary Care Provider] - - Patient Instructions Printed Discharge Instructions: DI for Atypical Chest Pain, DI for Gastroesophageal Reflux Disease (GERD) Additional Instructions: Your EKG and labs were normal. Please follow-up with your primary care doctor as needed for further evaluation. Return to ER if any further chest pain, fever, chills, or other concerning symptoms. - Post Discharge Activity
--- NOTE | 2018-03-04 14:41 | EKG ---
Test Reason : Blood Pressure : / mmHG Vent. Rate : 069 BPM Atrial Rate : 069 BPM P-R Int : 200 ms QRS Dur : 056 ms QT Int : 374 ms P-R-T Axes : 063 025 041 degrees QTc Int : 400 ms NORMAL SINUS RHYTHM NORMAL ECG WHEN COMPARED WITH ECG OF 09-MAY-2017 16:01, NO SIGNIFICANT CHANGE WAS FOUND Confirmed by MD West Daniel ([id number]) on 03/04/2018 2:40:35 PM Referred By: Confirmed By:Elio West MD
== END 2018-03-03 16:06 | disposition home or self-care (01) ==
LOC: JER 10:25
DX: R07.89 Other chest pain (principal); I10 Essential (primary) hypertension; K21.9 Gastro-esophageal reflux disease without esophagitis
CPT/HCPCS: 36415; 71045-TC-FY; 80053; 82550; 82553; 83880; 84484; 85025; 93005; 93010; 99283-25

== ENCOUNTER 2018-07-29 09:36 | Emergency (ER) | payer OTHER ==
[2018-07-29 09:53] VITALS: BP 133/93; PULSE 66; TEMP 98.3; BMI 23.5
[2018-07-29] MEDS ORDERED: KETOROLAC TROMETHAMINE 60 MG/2 ML VIAL IM ONE (10:09)
[2018-07-29] MEDS ORDERED: KETOROLAC TROMETHAMINE 60 MG/2 ML VIAL ONE (10:14)
[2018-07-29 10:28] LABS: URINE APPEARANCE CLEAR; URINE BILIRUBIN NEGATIVE (<2.0 mg/dL); URINE COLOR LTYELLOW; URINE GLUCOSE (UA) NEGATIVE (NEGATIVE); URINE KETONE NEGATIVE (NEGATIVE); URINE LEUK ESTERASE TRACE (NEGATIVE); URINE NITRITE NEGATIVE (NEGATIVE); URINE PROTEIN NEGATIVE (NEGATIVE); URINE UROBILINOGEN NEGATIVE mg/dL (0.2-1.0)
--- NOTE | 2018-07-29 10:30 | PDOC ---
History of Present Illness - General Chief Complaint: Back Pain Stated Complaint: BACK PAIN Time Seen by Provider: 07/29/18 09:47 History Source: Patient Exam Limitations: No Limitations - History of Present Illness Initial Comments: 07/29/18 10:31 Pt is a 63 y/o F who presents to the ED for mid to upper back pain for one week. Pt states that she first noticed the pain last Tuesday07/19/18 when she woke up in the morning. Denies trauma, heavy lifting or straining her back. Pt states that the stiffness resolves over the course of the day and she feels back to normal before she goes to bed at night. She has noticed over the past week she has been waking up with the soreness, so she presents to the ED for evaluation. Denies fevers, chills, flank pain, n/v/d, frequency, urgency, hematuria, weakness to the extremities, saddle anesthesia, bladder/bowel incontinence. Past History - Travel Traveled outside of the country in the last 30 days: No Close contact w/someone who was outside of country & ill: No - Past Medical History Allergies/Adverse Reactions: Allergies Allergy/AdvReac Type Severity Reaction Status Date / Time No Known Allergies Allergy Verified 07/29/18 09:41 Home Medications: Ambulatory Orders Multivitamin/Iron/Folic Acid [Centrum Adults Tablet] 1 each PO DAILY 05/09/17 Olmesartan/Hydrochlorothiazide [Olmesartan-Hctz 40-25 mg Tab] 1 each PO DAILY Aspirin Coated [Ecotrin -] 81 mg PO DAILY 07/29/18 Cyclobenzaprine HCl [Flexeril -] 10 mg PO HS #10 tablet 07/29/18 Mefloquine HCl 250 mg PO WEEKLY 07/29/18 [place]-3 Fatty Acids/Fish Oil [Fish Oil 1,000 mg Capsule] 2 each PO DAILY Pantoprazole Sodium [Protonix] 40 mg PO DAILY 07/29/18 Anemia: No Asthma: No Cancer: No Cardiac Disorders: No CVA: No COPD: No CHF: No Dementia: No Diabetes: No GI Disorders: No Disorders: No HTN: Yes Hypercholesterolemia: No Liver Disease: No Seizures: No Thyroid Disease: No - Immunization History Immunization Up to Date: Yes - Suicide/Smoking/Psychosocial Hx Smoking History: Never smoked Hx Alcohol Use: No Drug/Substance Use Hx: No Substance Use Type: None Hx Substance Use Treatment: No Review of Systems - Review of Systems Able to Perform ROS?: Yes Comments:: 07/29/18 10:09 CONSTITUTIONAL: Absent: fever, chills, diaphoresis, generalized weakness, malaise, loss of appetite HEENT: Absent: rhinorrhea, nasal congestion, throat pain, throat swelling, difficulty swallowing, mouth swelling, ear pain, eye pain, visual Changes CARDIOVASCULAR: Absent: chest pain, loss of consciousness, palpitations, irregular heart rate, peripheral edema RESPIRATORY: Absent: cough, shortness of breath, dyspnea with exertion, orthopnea, wheezing, stridor, hemoptysis GASTROINTESTINAL: Absent: abdominal pain, abdominal distension, nausea, vomiting, diarrhea, constipation, melena, hematochezia GENITOURINARY: Absent: dysuria, frequency, urgency, hesitancy, hematuria, flank pain, genital pain MUSCULOSKELETAL: Present: Mid to upper back pain b/l. Absent: arthralgia, joint swelling SKIN: Absent: rash, itching, pallor HEMATOLOGIC/IMMUNOLOGIC: Absent: easy bleeding, easy bruising, lymphadenopathy, frequent infections ENDOCRINE: Absent: unexplained weight gain, unexplained weight loss, heat intolerance, cold intolerance NEUROLOGIC: Absent: headache, focal weakness or paresthesias, dizziness, unsteady gait, seizure, mental status changes, bladder or bowel incontinence PSYCHIATRIC: Absent: anxiety, depression, suicidal or homicidal ideation, hallucinations. Is the patient limited [place] proficient: No *Physical Exam - Vital Signs Last Vital Signs Temp Pulse Resp BP Pulse Ox 98.3 F 66 16 133/93 98 07/29/18 09:44 07/29/18 09:44 07/29/18 09:44 07/29/18 09:44 07/29/18 09:44 - Physical Exam Comments: 07/29/18 10:09 GENERAL: Well developed, well nourished. Awake and alert. No acute distress. HEENT: Normocephalic, atraumatic. PERRLA, EOMI. No conjunctival pallor. Sclera are non- icteric. Moist mucous membranes. Oropharynx is clear. NECK: Supple. Full ROM. No JVD. Carotid pulses 2+ and symmetric, without bruits. No thyromegaly. No lymphadenopathy. MUSCULOSKELETAL No tenderness to palpation of the upper back. Paraspinous musculature feels tight b/l. No midline tenderness. (-) straight leg raise b/l. Normal range of motion at all joints. No bony deformities or tenderness. No CVA tenderness. EXTREMITIES: No cyanosis. No clubbing. No edema. No calf tenderness. SKIN: Warm and dry. Normal capillary refill. No rashes. No jaundice. NEUROLOGICAL: Alert, awake, appropriate. Cranial nerves 2-12 intact. No deficits to light touch and temperature in face, upper extremities and lower extremities. No motor deficits in the in face, upper extremities and lower extremities. Normoreflexic in the upper and lower extremities. Normal speech. Toes are down- going bilaterally. Gait is normal without ataxia. PSYCHIATRIC: Medical Decision Making - Medical Decision Making 07/29/18 11:18 -Pt with no TTP of the paraspinous muscles b/l from T-8-T-12. Tight musculature. -No trauma, or fever. No saddle anesthesia or bladder/bowel incontinence. No CVA tenderness. -Pt is neurologically intact on exam with no focal findings. -Toradol given with relief of symptoms -UA is negative at this time -I suspect muscle tightness/soreness from sleeping as symptoms resolve over the course of the day. Will prescribe flexeril for night time use -DC home. Ortho follow up given for if symptoms do not resolve. -I discussed the physical exam findings, ancillary test results and final diagnoses with the patient. I answered all of the patient's questions. The patient was satisfied with the care received and felt comfortable with the discharge plan and treatment plan. The Patient agrees to follow up with the primary care physician/specialist within 24-72 hours. Return precautions were given. *DC/Admit/Observation/Transfer Diagnosis at time of Disposition: Back pain Qualifiers: Back pain location: thoracic back pain Chronicity: acute Back pain laterality: bilateral Qualified Code(s): M54.6 - Pain in thoracic spine - Discharge Dispostion Disposition: HOME Condition at time of disposition: Stable Decision to Admit order: No - Referrals Referrals: Steven Owusu MD [Primary Care Provider] - - Patient Instructions Printed Discharge Instructions: DI for Low Back Pain Additional Instructions: You have back pain; it is most likely muscle spasms Take the Flexeril at night before you go to bed. Do not drink or drive after taking this medication as it may make you sleepy. You may also take 650 of tylenol before bed to help with your symptoms. This medication is over the counter Gentle stretching exercises and heat to the area may help Your urine was negative for an infection today Follow up with your Primary care doctor Return to the ED for any fevers, worsening pain, numbness and tingling down the extremities, saddle anesthesia, loss of bladder/bowel function, or if you have any changes in your symptoms - Post Discharge Activity
[2018-07-29 11:37] LABS: EPI CELLS RARE /HPF (FEW)
== END 2018-07-29 11:28 | disposition home or self-care (01) ==
LOC: JERFT 09:36
PROC: 3E0233Z Introduction of Anti-inflammatory into Muscle, Percutaneous Approach (ICD-10-PCS; principal; 2018-07-29)
DX: M54.6 Pain in thoracic spine (principal)
CPT/HCPCS: 81003; 81015; 87086; 99281-25

== ENCOUNTER 2019-04-02 11:37 | Emergency (ER) | payer OTHER ==
[2019-04-02 11:42] VITALS: BMI 25.0
--- NOTE | 2019-04-02 13:41 | PDOC ---
History of Present Illness - General Chief Complaint: Chest Pain Stated Complaint: chest pain Time Seen by Provider: 04/02/19 12:45 History Source: Patient Exam Limitations: No Limitations - History of Present Illness Initial Comments: 04/02/19 13:08 64-year-old female with history of hypertension presents to ED with complaints of a sharp pain to her mid chest that lasted approximately 3-5 seconds accompanying with a brief episode of lightheadedness. Patient states symptoms resolved without intervention but has had one similar episode approximately one week ago patient is followed by Dr. Hampton assistant director of security and states has had an echocardiogram done within the last 2 years. Patient denies palpitations, shortness of breath, weakness, headache fatigue, diaphoresis or nausea. Patient states blood pressure has been in control with her medication and denies any recent illness or recent travel Presenting Symptoms: Chest Pain Timing/Duration: reports: resolved prior to arrival Severity/Quality: reports: mild, sharp Location: reports: substernal Chest Pain Radiation: reports: no radiation Activities at Onset: reports: none Prior Chest Pain/Cardiac Workup: reports: Echocardiography Nitro Today/Relief: Yes: no nitro taken today Aspirin Received prior to arrival (Core Measure): Yes: no aspirin today Beta Sandra given by EMS (Core Measure): No Beta Sandra taken at Home (Core Measure): No Associated Symptoms: Yes: Chest Pain/pressure, Dizziness Past History - Travel Traveled outside of the country in the last 30 days: No Close contact w/someone who was outside of country & ill: No - Past Medical History Allergies/Adverse Reactions: Allergies Allergy/AdvReac Type Severity Reaction Status Date / Time No Known Allergies Allergy Verified 04/02/19 11:42 Home Medications: Ambulatory Orders Multivitamin/Iron/Folic Acid [Centrum Adults Tablet] 1 each PO DAILY 05/09/17 Olmesartan/Hydrochlorothiazide [Olmesartan-Hctz 40-25 mg Tab] 1 each PO DAILY Aspirin Coated [Ecotrin -] 81 mg PO DAILY 07/29/18 Cyclobenzaprine HCl [Flexeril -] 10 mg PO HS #10 tablet 07/29/18 Mefloquine HCl 250 mg PO WEEKLY 07/29/18 [place]-3 Fatty Acids/Fish Oil [Fish Oil 1,000 mg Capsule] 2 each PO DAILY Pantoprazole Sodium [Protonix] 40 mg PO DAILY 07/29/18 Anemia: No Asthma: No Cancer: No Cardiac Disorders: No CVA: No COPD: No CHF: No Dementia: No Diabetes: No GI Disorders: No Disorders: No HTN: Yes Hypercholesterolemia: No Liver Disease: No Seizures: No Thyroid Disease: No - Immunization History Immunization Up to Date: Yes - Suicide/Smoking/Psychosocial Hx Smoking History: Never smoked Information on smoking cessation initiated: No Hx Alcohol Use: No Drug/Substance Use Hx: No Substance Use Type: None Hx Substance Use Treatment: No Patient Lives Alone: No Lives with/in: spouse/SO Cardiac Specific PMH - Complaint Specific PMHX Pacemaker: No Review of Systems - Review of Systems Able to Perform ROS?: Yes Constitutional: No: Symptoms Reported HEENTM: No: Symptoms Reported Respiratory: No: Symptoms reported Cardiac (ROS): Yes: Chest Pain, Lightheadedness ABD/GI: No: Symptoms Reported : No: Symptoms Reported Musculoskeletal: No: Symptoms Reported Integumentary: No: Symptoms Reported Neurological: No: Symptoms reported Hematologic/Lymphatic: No: Symptoms Reported *Physical Exam - Vital Signs Last Vital Signs Temp Pulse Resp BP Pulse Ox 97.6 F 63 18 149/83 100 04/02/19 11:39 04/02/19 11:39 04/02/19 11:39 04/02/19 11:39 04/02/19 11:39 - Physical Exam General Appearance: Yes: Nourished, Appropriately Dressed. No: Apparent Distress HEENT: positive: EOMI, FELICIA, TMs Normal, Pharynx Normal. negative: Pale Conjunctivae Neck: positive: Normal Thyroid, Supple Respiratory/Chest: positive: Lungs Clear, Normal Breath Sounds. negative: Chest Tender, Respiratory Distress, Accessory Muscle Use Cardiovascular: positive: Regular Rhythm, Regular Rate. negative: Murmur Gastrointestinal/Abdominal: positive: Soft. negative: Tenderness Extremity: positive: Normal Inspection Integumentary: positive: Normal Color, Warm, Moist Neurologic: positive: Normal Mood/Affect, Motor Strength 5/5 (ambulatory) Heart Score/ECG Review - ECG Intrepretation Rhythm: Regular Rhythm (Rate 68 normal sinus rhythm with no ST elevation or depression. Intervals are regular.) ED Treatment Course - LABORATORY CBC & Chemistry Diagram: 04/02/19 13:40 04/02/19 13:40 - ADDITIONAL ORDERS Additional order review: Laboratory Results 04/02/19 13:40 Sodium 142 Potassium 4.0 Chloride 106 Carbon Dioxide 31 Anion Gap 5 L BUN 15.0 Creatinine 0.8 Est GFR (CKD-EPI)AfAm 91.58 Est GFR (CKD-EPI)NonAf 79.01 Random Glucose 102 Calcium 9.0 Total Bilirubin 0.3 AST 22 ALT 36 Alkaline Phosphatase 62 Creatine Kinase 370 H Troponin I < 0.02 Total Protein 7.8 Albumin 3.8 04/02/19 13:40 RBC 4.36 MCV 84.6 MCHC 34.6 RDW 14.8 MPV 7.4 L Neutrophils % 48.3 Lymphocytes % 45.6 H Monocytes % 5.2 Eosinophils % 0.4 Basophils % 0.5 Medical Decision Making - Medical Decision Making 04/02/19 13:03 Chief complaint: Episodic midsternal chest sharpness associated with lightheadedness lasting seconds. No other associated symptoms currently asymptomatic. Patient with history of hypertension. Similar symptom approximately one week ago lasting a few seconds also Exam: EKG NSR. No reproducible chest pain normal physical exam Plan: Labs, EKG 04/02/19 14:45 Laboratory Tests 11/18/16 05/09/17 03/03/18 19:10 16:36 11:30 WBC Hgb Hct Plt Count MPV 7.5 7.8 Lymphocytes % 43.7 H 34.5 D 43.3 H D Monocytes % Eosinophils % Basophils % Sodium Potassium Chloride Anion Gap BUN Creatinine Random Glucose AST ALT Creatine Kinase Troponin I 04/02/19 04/02/19 13:40 13:40 WBC 4.4 Hgb 12.7 Hct 36.9 Plt Count 281 MPV 7.4 L Lymphocytes % 45.6 H Monocytes % 5.2 Eosinophils % 0.4 Basophils % 0.5 Sodium 142 Potassium 4.0 Chloride 106 Anion Gap 5 L BUN 15.0 Creatinine 0.8 Random Glucose 102 AST 22 ALT 36 Creatine Kinase 370 H Troponin I < 0.02 04/02/19 14:45 She remains asymptomatic. Patient will follow-up with her assistant director of security as scheduled in 2 weeks. *DC/Admit/Observation/Transfer Diagnosis at time of Disposition: Chest pain, atypical - Discharge Dispostion Disposition: HOME Condition at time of disposition: Good - Referrals Referrals: Steven Owusu MD [Primary Care Provider] - Charlotte Schwartz MD [Non Staff, Medical] - - Patient Instructions Printed Discharge Instructions: DI for Atypical Chest Pain Additional Instructions: Follow up with your assistant director of security as scheduled previously. Return to the ED if symptoms worsen - Post Discharge Activity
[2019-04-02 13:58] LABS: BASO % 0.5 % (0-2.0); EOS % 0.4 % (0-4.5); HEMATOCRIT 36.9 % (32.4-45.2); HEMOGLOBIN 12.7 GM/dL (10.7-15.3); LYMPH % 45.6 % (8-40); MCH 29.3 pg (25.7-33.7); MCHC 34.6 g/dl (32.0-36.0); MEAN CELL VOLUME 84.6 fl (80-96); MEAN PLT VOLUME 7.4 fl (7.5-11.1); MONO % 5.2 % (3.8-10.2); NEUT % 48.3 % (42.8-82.8); PLATELET COUNT 281 K/MM3 (134-434); RBC 4.36 M/mm3 (3.60-5.2); RDW 14.8 % (11.6-15.6); WHITE BLOOD COUNT 4.4 K/mm3 (4.0-10.0)
[2019-04-02 14:41] LABS: ALBUMIN 3.8 g/dl (3.4-5.0); CHLORIDE 106 mmol/L (98-107); CO2 31 mmol/L (21-32); CREATININE 0.8 mg/dL (0.55-1.3); GLUCOSE,RANDOM 102 mg/dL (74-106); SODIUM 142 mmol/L (136-145); TOT PROT 7.8 g/dl (6.4-8.2)
[2019-04-02 14:42] LABS: ALK PHOS 62 U/L (45-117); BILIRUBIN,TOTAL 0.3 mg/dL (0.2-1); SGOT/AST 22 U/L (15-37); SGPT/ALT 36 U/L (13-61)
[2019-04-02 15:08] VITALS: BP 143/84; PULSE 66; TEMP 97.3
[2019-04-02 15:28] LABS: ANION GAP 6 MMOL/L (8-16); BLOOD UREA NITROGEN 14.9 mg/dL (7-18)
--- NOTE | 2019-04-03 12:08 | EKG ---
Test Reason : Blood Pressure : / mmHG Vent. Rate : 063 BPM Atrial Rate : 063 BPM P-R Int : 184 ms QRS Dur : 058 ms QT Int : 380 ms P-R-T Axes : 075 048 056 degrees QTc Int : 388 ms NORMAL SINUS RHYTHM NORMAL ECG WHEN COMPARED WITH ECG OF 03-MAR-2018 11:36, NO SIGNIFICANT CHANGE WAS FOUND Confirmed by Doroteo Mehta ([id number]) on 04/03/2019 12:07:51 PM Referred By: Confirmed By:Doroteo Mehta
== END 2019-04-02 15:08 | disposition home or self-care (01) ==
LOC: JER 11:37
DX: R07.9 Chest pain, unspecified (principal); I10 Essential (primary) hypertension
CPT/HCPCS: 36415; 80053; 82550; 82553; 84484; 85025; 93005; 93010; 99282-25

== ENCOUNTER 2021-03-03 04:34 | Observation (INO) | payer OTHER ==
[2021-03-03 06:41] LABS: BASO % 0.4 % (0-2.0); EOS % 0.1 % (0-4.5); HEMATOCRIT 37.7 % (32.4-45.2); HEMOGLOBIN 13.3 GM/dL (10.7-15.3); LYMPH % 36.1 % (8-40); MCHC 35.3 g/dl (32.0-36.0); MEAN CELL VOLUME 84.9 fl (80-96); MEAN PLT VOLUME 7.5 fl (7.5-11.1); MONO % 5.6 % (3.8-10.2); NEUT % 57.8 % (42.8-82.8); PLATELET COUNT 287 K/MM3 (134-434); RBC 4.44 M/mm3 (3.60-5.2); RDW 14.5 % (11.6-15.6); WHITE BLOOD COUNT 4.6 K/mm3 (4.0-10.0)
[2021-03-03 06:42] LABS: EPI CELLS 1 /uL (0-25.1); HYALINE CASTS 0 /uL (0-3.1); PH,URINE 7.5 (5.0-8.0); URINE APPEARANCE CLEAR; URINE BACTERIA 10 /uL (0-1359); URINE BILIRUBIN NEGATIVE (NEGATIVE); URINE COLOR YELLOW; URINE GLUCOSE (UA) NEGATIVE (NEGATIVE); URINE KETONE NEGATIVE (NEGATIVE); URINE LEUK ESTERASE NEGATIVE (NEGATIVE); URINE NITRITE NEGATIVE (NEGATIVE); URINE PROTEIN NEGATIVE (NEGATIVE); URINE RBC 16 /uL (0-23.9); URINE UROBILINOGEN 0.2 mg/dL (0.2-1.0); URINE WBC 1 /uL (0-25.8)
[2021-03-03 06:55] LABS: CHLORIDE 102 mmol/L (98-107); SODIUM 141 mmol/L (136-145)
[2021-03-03 06:56] LABS: CALCIUM 9.3 mg/dL (8.5-10.1)
[2021-03-03 06:57] LABS: ALBUMIN 3.7 g/dl (3.4-5.0); ANION GAP 7 MMOL/L (8-16); BLOOD UREA NITROGEN 14.2 mg/dL (7-18); CO2 32 mmol/L (21-32); GLUCOSE,RANDOM 106 mg/dL (74-106)
[2021-03-03 07:00] LABS: CREATININE 0.7 mg/dL (0.55-1.3); SGOT/AST 29 U/L (15-37); SGPT/ALT 38 U/L (13-61)
[2021-03-03 07:02] LABS: BILIRUBIN,TOTAL 0.4 mg/dL (0.2-1); TOT PROT 7.5 g/dl (6.4-8.2)
[2021-03-03 07:03] LABS: ALK PHOS 65 U/L (45-117)
[2021-03-03 15:34] LABS: CHOLESTEROL 197 mg/dL (50-200)
[2021-03-03 15:35] LABS: LDL CHOLESTEROL (ONLY SJRH) 80 mg/dL (5-100); TRIGLYCERIDES 51 mg/dL (0-150)
[2021-03-03 15:37] LABS: HDL CHOLESTEROL 85 mg/dL (40-60)
[2021-03-03 18:36] VITALS: BMI 24.3
[2021-03-03] MEDS ORDERED: HEPARIN NA (PORCINE) 5,000 UNITS/ML 1ML VIAL SQ SCH (22:00)
[2021-03-03] MEDS ORDERED: LOSARTAN POTASSIUM 50 MG TABLET PO ONE (22:15)
[2021-03-04] MEDS ORDERED: LOSARTAN POTASSIUM 50 MG TABLET PO SCH (10:00)
[2021-03-04] MEDS ORDERED: ASPIRIN COATED 81 MG TABLET.EC PO SCH (10:00)
[2021-03-04 15:24] VITALS: BP 149/84; PULSE 67; TEMP 98
== END 2021-03-04 16:44 | disposition home or self-care (01) ==
LOC: JER 04:34 → JERBED 11:23 → INTOOBSV 11:23 → UNDOADMOB 11:23 → JERBED 11:24 → UNDOADMOB 11:24 → INTOOBSV 16:16 → OBSVTOIN 16:16 → JERBED 17:55 → J4W 17:55 → JERBED 03-04 09:52 → J4W 03-04 09:52
PROVIDERS: ADMIT Internal Medicine; ATTEND Internal Medicine
DX: R42 Dizziness and giddiness (principal); R53.1 Weakness; R53.83 Other fatigue; R00.2 Palpitations; I10 Essential (primary) hypertension
CPT/HCPCS: 36415; 70450-TC; 71045-TC-FY; 78452-TC; 80053; 80061; 81003; 82550; 82553; 83036; 83721; 84443; 84484; 85025; 87086; 93005; 93010; 93017; 99285-25; A9502; C9803; G0378; U0003; U0005

== ENCOUNTER 2021-08-02 17:05 | Emergency (ER) | payer OTHER ==
[2021-08-02 17:57] VITALS: BP 165/91; PULSE 78; TEMP 97.8; BMI 24.3
[2021-08-02 21:36] LABS: BASO % 0.2 % (0-2.0); EOS % 0.2 % (0-4.5); HEMATOCRIT 36.7 % (32.4-45.2); HEMOGLOBIN 13.3 GM/dL (10.7-15.3); LYMPH % 34.7 % (8-40); MCH 30.3 pg (25.7-33.7); MCHC 36.1 g/dl (32.0-36.0); MONO % 5.6 % (3.8-10.2); NEUT % 59.3 % (42.8-82.8); PLATELET COUNT 304 10^3/uL (134-434); RBC 4.37 M/mm3 (3.60-5.2); RDW 14.1 % (11.6-15.6); WHITE BLOOD COUNT 7.2 K/mm3 (4.0-10.0)
[2021-08-02 21:50] LABS: EPI CELLS 3 /uL (0-25.1); HYALINE CASTS 0 /uL (0-3.1); URINE APPEARANCE CLEAR; URINE BACTERIA 6 /uL (0-1359); URINE BILIRUBIN NEGATIVE (NEGATIVE); URINE COLOR YELLOW; URINE GLUCOSE (UA) NEGATIVE (NEGATIVE); URINE KETONE NEGATIVE (NEGATIVE); URINE LEUK ESTERASE NEGATIVE (NEGATIVE); URINE NITRITE NEGATIVE (NEGATIVE); URINE PROTEIN NEGATIVE (NEGATIVE); URINE RBC 17 /uL (0-23.9); URINE UROBILINOGEN 0.2 mg/dL (0.2-1.0); URINE WBC 4 /uL (0-25.8)
[2021-08-02 22:04] LABS: ALBUMIN 3.8 g/dl (3.4-5.0); BLOOD UREA NITROGEN 13.4 mg/dL (7-18); CALCIUM 9.3 mg/dL (8.5-10.1)
[2021-08-02 22:07] LABS: CREATININE 0.8 mg/dL (0.55-1.3)
[2021-08-02 22:09] LABS: BILIRUBIN,TOTAL 0.3 mg/dL (0.2-1); TOT PROT 7.8 g/dl (6.4-8.2)
== END 2021-08-02 23:00 | disposition home or self-care (01) ==
LOC: JER 17:05
DX: R53.1 Weakness (principal)
CPT/HCPCS: 36415; 80053; 81003; 85025; 99283-25

== ENCOUNTER 2021-09-23 10:19 | Emergency (ER) | payer OTHER ==
[2021-09-23 11:31] VITALS: TEMP 97.9; BMI 25.5
[2021-09-23 15:10] LABS: BASO % 0.4 % (0-2.0); HEMATOCRIT 37.3 % (32.4-45.2); HEMOGLOBIN 13.2 GM/dL (10.7-15.3); LYMPH % 53.3 % (8-40); MCHC 35.5 g/dl (32.0-36.0); MEAN CELL VOLUME 84.4 fl (80-96); MEAN PLT VOLUME 6.9 fl (7.5-11.1); MONO % 7.3 % (3.8-10.2); PLATELET COUNT 288 10^3/uL (134-434); RBC 4.42 M/mm3 (3.60-5.2); RDW 13.9 % (11.6-15.6)
[2021-09-23 15:17] LABS: INR 1.16 (0.83-1.09)
[2021-09-23 15:31] LABS: CHLORIDE 102 mmol/L (98-107); SODIUM 139 mmol/L (136-145)
[2021-09-23 15:33] LABS: ANION GAP 5 MMOL/L (8-16); CALCIUM 9.1 mg/dL (8.5-10.1); CO2 33 mmol/L (21-32)
[2021-09-23 15:34] LABS: GLUCOSE,RANDOM 78 mg/dL (74-106)
[2021-09-23 15:37] LABS: ALBUMIN 3.7 g/dl (3.4-5.0); BLOOD UREA NITROGEN 12.6 mg/dL (7-18)
[2021-09-23 15:40] LABS: CREATININE 0.7 mg/dL (0.55-1.3); SGOT/AST 21 U/L (15-37)
[2021-09-23 15:41] LABS: BILIRUBIN,TOTAL 0.4 mg/dL (0.2-1); TOT PROT 7.6 g/dl (6.4-8.2)
[2021-09-23 15:42] LABS: ALK PHOS 68 U/L (45-117)
[2021-09-23 16:00] LABS: SGPT/ALT 33 U/L (13-61)
[2021-09-23 17:22] VITALS: BP 125/68; PULSE 70
[2021-09-23 17:52] LABS: EPI CELLS 3 /uL (0-25.1); HYALINE CASTS 0 /uL (0-3.1); PH,URINE 6.5 (5.0-8.0); URINE APPEARANCE CLEAR; URINE BACTERIA 24 /uL (0-1359); URINE BILIRUBIN NEGATIVE (NEGATIVE); URINE COLOR YELLOW; URINE GLUCOSE (UA) NEGATIVE (NEGATIVE); URINE KETONE NEGATIVE (NEGATIVE); URINE LEUK ESTERASE TRACE (NEGATIVE); URINE NITRITE NEGATIVE (NEGATIVE); URINE PROTEIN NEGATIVE (NEGATIVE); URINE RBC 23 /uL (0-23.9); URINE UROBILINOGEN 0.2 mg/dL (0.2-1.0); URINE WBC 8 /uL (0-25.8)
== END 2021-09-23 16:55 | disposition home or self-care (01) ==
LOC: JER 10:19
DX: R53.83 Other fatigue (principal)
CPT/HCPCS: 36415; 80053; 81003; 82550; 82553; 84443; 84484; 85025; 85610; 87086; 87186; 93005; 93010; 99284-25